=== PATIENT | female | born 1950 | race Caucasian/White ===

== ENCOUNTER 2020-01-26 15:31 | Inpatient (IN) ==
[2020-01-26] MEDS ORDERED: SODIUM CHLORIDE 0.9% 1,000 ML IV STA (16:12)
[2020-01-26 17:06] LABS: Basophils % 0.2 % (0.0-0.8); Eosinophils % 0.1 % (0.00-10.9); Hemoglobin 13.1 GM/DL (12.0-16.0); Immature Granulocytes % 0.5 %; Immature Granulocytes Absolute 0.08 #; Lymphocytes # 1.2 10*3/uL (1.4-4.0); Lymphocytes % 6.9 % (21.3-54.2); Mean Corpuscular HGB Conc 32.8 GM/DL (32-36); Mean Corpuscular Volume 92.4 FL (87-102); Mean Platelet Volume 10.5 FL (9.6-12.0); Monocytes % 4.9 % (1.7-12.7); Neutrophils % 87.4 % (38.7-73.9); Platelet Count 139 T/CUMM (130-400); Red Blood Count 4.33 MC/CUMM (3.8-5.5); White Blood Count 17.1 T/CUMM (4-12)
[2020-01-26 17:19] LABS: INR 1.1; PT Patient Result 11.7 SECS (9.8-11.9)
[2020-01-26 17:30] LABS: Apearance,Urine Slightly Hazy (Clear); Bacteria,Urine Few /HPF (Few); Bilirubin,Urine Negative (Negative); Blood, Urine Small mg/dL (Negative); Glucose,Urine (UA) Negative (Negative); Ketones,Urine 20 mg/dL (Negative); Mucus,Urine Occasional /LPF (Occasional); Nitrite,Urine Negative (Negative); Protein,Urine Negative; RBC,Urine 1 /HPF (0-4); Squamous Epithelial Cell,Urine Occasional /HPF (0-10); Urine Color Yellow (Yellow); Urine Specific Gravity 1.016 (1.001-1.035); Urine Urobilinogen < 2.0 EU/DL (0.2-1.0); WBC,Urine 167 /HPF (0-6)
[2020-01-26 17:36] LABS: Alanine Aminotransferase 9 U/L (13-56); Alkaline Phosphatase 73 U/L (45-117); Aspartate Amino Transferase 21 U/L (0-37); Blood Urea Nitrogen 20 MG/DL (7-18); Calcium 8.9 MG/DL (8.5-10.1); Estimated Glom Filtration Rate 64 ML/MIN; Glucose 138 MG/DL (74-106); Osmolality,Calculated 279.7 MOS/KG (273-304); Total Protein 7.3 G/DL (6.4-8.3)
[2020-01-26] MEDS ORDERED: LEVOFLOXACIN INJ 500 MG in PREMIX 1 EACH IV STA (17:44)
[2020-01-26] MEDS ORDERED: GLUCAGON 1 MG VIAL IM PRN (18:02)
[2020-01-26] MEDS ORDERED: DEXTROSE 10% 250 ML BAG IV PRN (18:02)
[2020-01-26] MEDS: ENOXAPARIN 40 MG/0.4 ML SYRINGE SUBCUT SCH (21:45)
[2020-01-27] MEDS: MEMANTINE 10 MG TABLET PO SCH ×3 (02:50→20:30)
[2020-01-27] MEDS: CARBIDOPA/LEVODOPA 25-100 MG TABLET PO SCH ×4 (02:50→20:30)
[2020-01-27 04:00] LABS: Thyroid Stimulating Hormone 1.95 uIU/ml (0.358-3.74)
[2020-01-27 05:11] LABS: Basophils % 0.3 % (0.0-0.8); Eosinophils # 0.1 10*3/uL (0.0-0.87); Eosinophils % 0.4 % (0.00-10.9); Hematocrit 38.1 VOL% (35.7-47.0); Hemoglobin 12.2 GM/DL (12.0-16.0); Immature Granulocytes % 0.4 %; Immature Granulocytes Absolute 0.06 #; Lymphocytes # 2.1 10*3/uL (1.4-4.0); Lymphocytes % 15.2 % (21.3-54.2); Mean Corpuscular Volume 95.3 FL (87-102); Mean Platelet Volume 10.9 FL (9.6-12.0); Monocytes % 4.6 % (1.7-12.7); Neutrophils % 79.1 % (38.7-73.9); Platelet Count 136 T/CUMM (130-400); Red Cell Distribution Width 13.1 % (9.3-17.3); White Blood Count 13.5 T/CUMM (4-12)
[2020-01-27 06:56] LABS: Albumin 2.7 G/DL (3.4-5.0); Calcium 8.7 MG/DL (8.5-10.1); Ferritin 164.3 ng/ml (8-252); Osmolality,Calculated 279.5 MOS/KG (273-304)
[2020-01-27] MEDS: PANTOPRAZOLE 40 MG TABLET PO SCH (07:00)
[2020-01-27] MEDS: ASPIRIN EC 81 MG TABLET PO SCH (09:30)
[2020-01-27] MEDS: DONEPEZIL 10 MG TABLET PO SCH (09:30)
[2020-01-27] MEDS: cefTRIAXone 1,000 MG in SYRINGE 1 EACH IV SCH (09:51)
[2020-01-27] MEDS: Mirabegron [Myrbetriq] 25 MG PO SCH (09:51)
[2020-01-27] MEDS ORDERED: LEVOFLOXACIN INJ 500 MG in PREMIX 1 EACH IV SCH (18:00)
[2020-01-27] MEDS: ENOXAPARIN 40 MG/0.4 ML SYRINGE SUBCUT SCH (20:30)
[2020-01-28 04:41] LABS: Basophils % 0.4 % (0.0-0.8); Eosinophils # 0.3 10*3/uL (0.0-0.87); Eosinophils % 2.3 % (0.00-10.9); Hematocrit 34.6 VOL% (35.7-47.0); Hemoglobin 11.2 GM/DL (12.0-16.0); Immature Granulocytes % 0.4 %; Immature Granulocytes Absolute 0.05 #; Lymphocytes # 2.3 10*3/uL (1.4-4.0); Lymphocytes % 20.6 % (21.3-54.2); Mean Corpuscular HGB Conc 32.4 GM/DL (32-36); Mean Corpuscular Volume 93.5 FL (87-102); Mean Platelet Volume 10.4 FL (9.6-12.0); Monocytes % 4.6 % (1.7-12.7); Neutrophils % 71.7 % (38.7-73.9); Platelet Count 131 T/CUMM (130-400); Red Cell Distribution Width 12.9 % (9.3-17.3); White Blood Count 11.1 T/CUMM (4-12)
[2020-01-28 05:06] LABS: Hypochromasia Slight; Microcytosis Slight; Platelet Estimate Normal
[2020-01-28] MEDS: CARBIDOPA/LEVODOPA 25-100 MG TABLET PO SCH ×3 (05:30→20:54)
[2020-01-28] MEDS: PANTOPRAZOLE 40 MG TABLET PO SCH (05:30)
[2020-01-28 05:42] LABS: Albumin 2.4 G/DL (3.4-5.0); Bilirubin,Total 0.8 MG/DL (0.2-1.0); Calcium 8.6 MG/DL (8.5-10.1); Total Protein 6.4 G/DL (6.4-8.3)
[2020-01-28 06:29] LABS: Sedimentation Rate-Westergren 80 MM/HR (0-30)
[2020-01-28] MEDS: ASPIRIN EC 81 MG TABLET PO SCH (09:12)
[2020-01-28] MEDS: DONEPEZIL 10 MG TABLET PO SCH (09:12)
[2020-01-28] MEDS: MEMANTINE 10 MG TABLET PO SCH ×2 (09:12→20:54)
[2020-01-28] MEDS: cefTRIAXone 1,000 MG in SYRINGE 1 EACH IV SCH (09:12)
[2020-01-28] MEDS: Mirabegron [Myrbetriq] 25 MG PO SCH (09:13)
[2020-01-28] MEDS: ENOXAPARIN 40 MG/0.4 ML SYRINGE SUBCUT SCH (20:54)
[2020-01-29] MEDS: PANTOPRAZOLE 40 MG TABLET PO SCH (06:05)
[2020-01-29] MEDS: CARBIDOPA/LEVODOPA 25-100 MG TABLET PO SCH ×2 (06:05→14:21)
[2020-01-29 06:39] LABS: Basophils % 0.5 % (0.0-0.8); Eosinophils # 0.3 10*3/uL (0.0-0.87); Eosinophils % 3.1 % (0.00-10.9); Hematocrit 34.7 VOL% (35.7-47.0); Hemoglobin 11.1 GM/DL (12.0-16.0); Immature Granulocytes % 0.5 %; Immature Granulocytes Absolute 0.04 #; Lymphocytes % 22.6 % (21.3-54.2); Mean Corpuscular Volume 93.8 FL (87-102); Mean Platelet Volume 10.1 FL (9.6-12.0); Monocytes % 5.1 % (1.7-12.7); Neutrophils % 68.2 % (38.7-73.9); Platelet Count 180 T/CUMM (130-400); Red Cell Distribution Width 12.7 % (9.3-17.3); White Blood Count 8.8 T/CUMM (4-12)
[2020-01-29 07:42] LABS: Calcium 9.1 MG/DL (8.5-10.1)
[2020-01-29 07:43] LABS: Albumin 2.3 G/DL (3.4-5.0); Blood Urea Nitrogen 18 MG/DL (7-18); Glucose 100 MG/DL (74-106); Osmolality,Calculated 276.7 MOS/KG (273-304)
[2020-01-29 07:46] LABS: Alanine Aminotransferase 12 U/L (13-56); Aspartate Amino Transferase 17 U/L (0-37); Estimated Glom Filtration Rate 47 ML/MIN
[2020-01-29 07:48] LABS: Bilirubin,Total < 0.39 MG/DL (0.2-1.0); Total Protein 6.7 G/DL (6.4-8.3)
[2020-01-29 07:49] LABS: Alkaline Phosphatase 69 U/L (45-117); Ferritin 166.4 ng/ml (8-252)
[2020-01-29 07:50] LABS: Sedimentation Rate-Westergren 98 MM/HR (0-30)
[2020-01-29] MEDS: MEMANTINE 10 MG TABLET PO SCH (08:56)
[2020-01-29] MEDS: ASPIRIN EC 81 MG TABLET PO SCH (08:56)
[2020-01-29] MEDS: POTASSIUM CHLORIDE 20 MEQ TABLET PO PRN ×2 (08:56→11:34)
[2020-01-29] MEDS: DONEPEZIL 10 MG TABLET PO SCH (08:57)
[2020-01-29] MEDS: cefTRIAXone 1,000 MG in SYRINGE 1 EACH IV SCH (09:10)
[2020-01-29] MEDS: Mirabegron [Myrbetriq] 25 MG PO SCH (09:15)
[2020-01-29 17:57] VITALS: BP 139/72
== END 2020-01-29 18:11 | DRG 872 ==
LOC: EDBD → EDUNIT# → N.ED 15:31 → N.EDINP 18:02 → N.2E 01-27 10:37
PROVIDERS: ADMIT Internal Medicine; ATTEND Internal Medicine